=== PATIENT | female | born 1995 | race American Indian/Alaskan Native ===

== ENCOUNTER 2018-04-18 14:46 | Outpatient (CLI) | payer MEDICAID ==
[2018-04-18] MEDS ORDERED: LACTATED RINGERS 500 ML IV ONE (14:54)
[2018-04-18] MEDS ORDERED: BRETHINE SUB-Q ONE (14:55)
[2018-04-18 15:41] LABS: Amphetamine Screen,Urine PRESUMPTIVE NEGATIVE; Benzodiazepines Screen,Urine PRESUMPTIVE NEGATIVE; Cannabinoid Screen,Urine PRESUMPTIVE NEGATIVE; Cocaine Screen,Urine PRESUMPTIVE NEGATIVE; Methadone Screen,Urine PRESUMPTIVE NEGATIVE; Opiate Screen,Urine PRESUMPTIVE NEGATIVE
[2018-04-18 15:59] LABS: Bacteria,Urine 3+ /HPF (Negative); Bilirubin,Urine NEG (Negative); Blood,Urine MOD (Negative); Color,Urine Yellow (Yellow); Mucus,Urine FEW /HPF; Urobilinogen,Urine < 2.0 mg/dL (<2.0)
== END 2018-04-18 17:00 | disposition home or self-care (01) ==
LOC: TRG 14:46
PROVIDERS: ATTEND Obstetrics & Gynecology
DX: O47.03 False labor before 37 completed weeks of gestation, third trimester (principal); O99.333 Smoking (tobacco) complicating pregnancy, third trimester; F17.210 Nicotine dependence, cigarettes, uncomplicated; Z3A.32 32 weeks gestation of pregnancy; Z79.899 Other long term (current) drug therapy
CPT/HCPCS: 59025; 80307; 81001; 96360; 96361; J3105; J7120

== ENCOUNTER 2018-06-10 09:29 | Inpatient (IN) | payer MEDICAID ==
--- NOTE | 2018-06-10 09:53 | Emergency Department Report ---
ED Fever HPI - General Stated Complaint: FEVER Time Seen by Provider: 06/10/18 09:40 Source: patient, EMS Exam Limitations: no limitations - History of Present Illness Initial Comments: is a 23-year-old female that presents emergency room with complaints of fever and weakness. Patient also complains of right breast pain. Patient states she just had a baby 7 days ago and was discharged 2 days ago from [facility]. Patient states she had a vaginal delivery with no complications. Patient states the baby is doing well. Patient denies vaginal bleeding or vaginal discharge. Patient complains of right breast pain and patient is breast -feeding. Patient states her right breast is hard and warm and very tender to touch. Patient states she feels like is mastitis. 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 denies: abdominal pain, chest pain , confusion, cough, diaphoresis, headache, nausea/vomiting, rash, shortness of breath, sore throat, stiff neck, syncope ED Review of Systems ROS: Stated complaint: FEVER Other details as noted in HPI Constitutional: chills, fever, malaise, weakness Eyes: denies: eye pain, eye discharge, vision change ENT: denies: ear pain, throat pain Respiratory: denies: cough, shortness of breath, wheezing Cardiovascular: denies: chest pain, palpitations Endocrine: no symptoms reported Gastrointestinal: denies: abdominal pain, nausea, diarrhea Genitourinary: denies: urgency, dysuria, discharge Musculoskeletal: denies: back pain, joint swelling, arthralgia Skin: denies: rash, lesions Neurological: denies: headache, weakness, paresthesias Psychiatric: denies: anxiety, depression Hematological/Lymphatic: denies: easy bleeding, easy bruising ED Past Medical Hx - Past Medical History Previous Medical History?: No - Surgical History Past Surgical History?: No - Family History Family history: no significant - Social History Smoking Status: Never Smoker Substance Use Type: None - Medications Home Medications: Home Medications Medication Instructions Recorded Confirmed Last Taken Type No Known Home Medications [No 06/10/18 06/10/18 Unknown History Reported Home Medications] ED Physical Exam - General Limitations: No Limitations General appearance: alert, in no apparent distress - Head Head exam: Present: atraumatic, normocephalic - Eye Eye exam: Present: normal appearance - ENT ENT exam: Present: mucous membranes moist - Neck Neck exam: Present: normal inspection - Respiratory Respiratory exam: Present: normal lung sounds bilaterally. Absent: respiratory distress - Cardiovascular Cardiovascular Exam: Present: regular rate, normal rhythm, other (right breast exam done with nurse in the room. Right breast is tender to palpation and redness and warm. ). Absent: systolic murmur, diastolic murmur, rubs, gallop - GI/Abdominal GI/Abdominal exam: Present: soft, normal bowel sounds - Extremities Exam Extremities exam: Present: normal inspection - Back Exam Back exam: Present: normal inspection - Neurological Exam Neurological exam: Present: alert, oriented X3 - Psychiatric Psychiatric exam: Present: normal affect, normal mood - Skin Skin exam: Present: warm, dry, intact, normal color, erythema (rt breast. breast exam with nurse/eleazar in room. ). Absent: rash ED Course Vital Signs 06/10/18 06/10/18 09:52 10:07 Temperature 102.5 F H 102.5 F H Pulse Rate 108 H 108 H Respiratory 22 19 Rate Blood Pressure 143/85 Blood Pressure 143/85 [Left] O2 Sat by Pulse 98 98 Oximetry - Reevaluation(s) Reevaluation #1: Discussed all results with patient. Patient to be admitted to the hospitalist service for further evaluation and treatment. 06/10/18 13:55 - Consultations Consultation #1: dr dee consulted for admission. dr dee to assume care,. 06/10/18 13:55 ED Medical Decision Making - Lab Data Result diagrams: 06/10/18 10:07 06/10/18 10:07 - Medical Decision Making Patient is a 23-year-old female presents emergency room for weakness and fever. Patient found to be septic. Patient found to have an elevated white count and heart rate. Patient is also status post vaginal delivery 7 days ago. Patient found to have mastitis of her right breast and a UTI. Patient was started on antibiotic therapy and given 3 L of normal saline bolus. Patient will be admitted to the hospitalist service for further evaluation treatment - Differential Diagnosis fever. weakness. sepsis. uti. mastitis. Critical Care Time: Yes Critical care attestation.: If time is entered above; I have spent that time in minutes in the direct care of this critically ill patient, excluding procedure time. Critical Care Time: 35 minutes for cc time. ED Disposition Clinical Impression: Tachycardia, Weakness, Mastitis, Lactic acid acidosis Fever Qualifiers: Fever type: unspecified Qualified Code(s): R50.9 - Fever, unspecified Sepsis Qualifiers: Sepsis type: sepsis due to unspecified organism Qualified Code(s): A41.9 - Sepsis, unspecified organism Urinary tract infection Qualifiers: Urinary tract infection type: acute cystitis Hematuria presence: with hematuria Qualified Code(s): N30.01 - Acute cystitis with hematuria Disposition: OP ADMIT IP TO THIS HOSP Is pt being admited?: Yes Does the pt Need Aspirin: No Condition: Critical Time of Disposition: 13:51
[2018-06-10] MEDS ORDERED: NACL 0.9% 1000 ML IV ONE (10:02)
[2018-06-10] MEDS ORDERED: ZOSYN/NS 4.5GM/100ML 4.5 GM/100 ML VIAL IV ONE (10:02)
[2018-06-10 10:26] LABS: Basophils # (Auto) 0.1 K/mm3 (0.0-0.1); Basophils % (Auto) 0.7 % (0.0-1.8); Eosinophils % (Auto) 0.2 % (0.0-4.3); Hemoglobin 14.1 gm/dl (10.1-14.3); Lymphocytes # (Auto) 1.2 K/mm3 (1.2-5.4); Lymphocytes % (Auto) 8.9 % (13.4-35.0); Mean Corpuscular HGB Conc 32 % (30-34); Mean Corpuscular Volume 79 fl (79-97); Monocytes # (Auto) 0.6 K/mm3 (0.0-0.8); Monocytes % (Auto) 4.5 % (0.0-7.3); Platelet Count 373 K/mm3 (140-440); Red Blood Count 5.59 M/mm3 (3.65-5.03); Red Cell Distribution Width 15.4 % (13.2-15.2)
[2018-06-10 10:30] LABS: Mean Corpuscular Hemoglobin 25 pg (28-32)
[2018-06-10 10:36] LABS: Alanine Aminotransferase 47 units/L (7-56); Albumin 3.7 g/dL (3.9-5); BUN/Creatinine Ratio 13; Blood Urea Nitrogen 9 mg/dL (7-17); Calcium 9.1 mg/dL (8.4-10.2); Hemolysis Index 21
[2018-06-10] MEDS ORDERED: DILAUDID IV ONE (12:09)
[2018-06-10 13:11] LABS: Bacteria,Urine 1+ /HPF (Negative); Bilirubin,Urine NEG (Negative); Blood,Urine LG (Negative); Color,Urine Yellow (Yellow); Urobilinogen,Urine < 2.0 mg/dL (<2.0)
[2018-06-10] MEDS ORDERED: TYLENOL ONE (16:47)
[2018-06-10] MEDS: TYLENOL PO PRN ×2 (16:52→23:30)
[2018-06-10] MEDS ORDERED: MORPHINE ONE (17:42)
--- NOTE | 2018-06-10 19:03 | History and Physical Report ---
History of Present Illness Date of examination: 06/10/18 Date of admission: 06/10/18 14:24 Chief complaint: CC Fever and R Breast pain 2 days History of present illness: History of Present Illness: 23-year-old female that presents emergency room with complaints of fever and weakness. Patient also complains of right breast pain. Patient states she just had a baby 7 days ago and was discharged 2 days ago from [facility]. Patient states she had a vaginal delivery with no complications. Patient states the baby is doing well. Patient denies vaginal bleeding or vaginal discharge. Patient complains of right breast pain and patient is breast- feeding. Patient states her right breast is hard and warm and very tender to touch. Patient states she feels like is mastitis. 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 denies: abdominal pain, chest pain, confusion , cough, diaphoresis, headache, nausea/vomiting, rash, shortness of breath, sore throat, stiff neck, syncope Past Medical History Previous Medical History?: No Surgical History Past Surgical History?: No Family History Family history: no significant Social History Smoking Status: Never Smoker Substance Use Type: None Medications Home Medications: Home Medications Medication Instructions Recorded Confirmed Last Taken Type No Known Home Medications [No 06/10/18 06/10/18 Unknown History Reported Home Medications] Review of Systems ROS: Stated complaint: FEVER Other details as noted in HPI Constitutional: chills, fever, malaise, weakness Eyes: denies: eye pain, eye discharge, vision change ENT: denies: ear pain, throat pain Respiratory: denies: cough, shortness of breath, wheezing Cardiovascular: denies: chest pain, palpitations Endocrine: no symptoms reported Gastrointestinal: denies: abdominal pain, nausea, diarrhea Genitourinary: denies: urgency, dysuria, discharge Musculoskeletal: denies: back pain, joint swelling, arthralgia Skin: denies: rash, lesions Neurological: denies: headache, weakness, paresthesias Psychiatric: denies: anxiety, depression Hematological/Lymphatic: denies: easy bleeding, easy bruising Medications and Allergies Allergies Allergy/AdvReac Type Severity Reaction Status Date / Time No Known Allergies Allergy Unverified 08/10/13 10:27 Home Medications Medication Instructions Recorded Confirmed Last Taken Type No Known Home Medications [No 06/10/18 06/10/18 Unknown History Reported Home Medications] Active Meds: Active Medications Acetaminophen (Tylenol) 650 mg PO Q6H PRN PRN Reason: Fever >101 Last Admin: 06/10/18 16:52 Dose: 650 mg Exam - Constitutional Vitals: Temp Pulse Resp BP Pulse Ox 102.5 F H 108 H 19 143/85 98 06/10/18 10:07 06/10/18 10:07 06/10/18 10:07 06/10/18 10:07 06/10/18 10:07 General appearance: Present: no acute distress, well-nourished - EENT Eyes: Present: PERRL ENT: hearing intact, clear oral mucosa - Neck Neck: Present: supple, normal ROM - Respiratory Respiratory effort: normal Respiratory: bilateral: CTA - Cardiovascular Heart rate: 78 Rhythm: other (r Breast Redness and swelling present around mnipple 5 cmx 5cm) Heart Sounds: Present: S1 & S2. Absent: rub, click - Extremities Extremities: no ischemia, pulses intact, pulses symmetrical, No edema Peripheral Pulses: within normal limits - Abdominal General gastrointestinal: Present: soft, non-tender, non-distended, normal bowel sounds Female genitourinary: Present: normal - Rectal Rectal Exam: deferred - Integumentary Integumentary: Present: clear, warm, dry - Musculoskeletal Musculoskeletal: gait normal, strength equal bilaterally - Psychiatric Psychiatric: appropriate mood/affect, intact judgment & insight - Neurologic Neurologic: CNII-XII intact, moves all extremities - Allied Health Allied health notes reviewed: nursing, case management Results - Labs CBC & Chem 7: 06/10/18 10:07 06/10/18 10:07 Labs: Laboratory Last Values WBC 13.8 K/mm3 (4.5-11.0) H 06/10/18 10:07 RBC 5.59 M/mm3 (3.65-5.03) H 06/10/18 10:07 Hgb 14.1 gm/dl (10.1-14.3) 06/10/18 10:07 Hct 44.0 % (30.3-42.9) H 06/10/18 10:07 MCV 79 fl (79-97) 06/10/18 10:07 MCH 25 pg (28-32) L 06/10/18 10:07 MCHC 32 % (30-34) 06/10/18 10:07 RDW 15.4 % (13.2-15.2) H 06/10/18 10:07 Plt Count 373 K/mm3 (140-440) 06/10/18 10:07 Lymph % (Auto) 8.9 % (13.4-35.0) L 06/10/18 10:07 [place] % (Auto) 4.5 % (0.0-7.3) 06/10/18 10:07 Eos % (Auto) 0.2 % (0.0-4.3) 06/10/18 10:07 Baso % (Auto) 0.7 % (0.0-1.8) 06/10/18 10:07 Lymph # 1.2 K/mm3 (1.2-5.4) 06/10/18 10:07 [place] # 0.6 K/mm3 (0.0-0.8) 06/10/18 10:07 Eos # 0.0 K/mm3 (0.0-0.4) 06/10/18 10:07 Baso # 0.1 K/mm3 (0.0-0.1) 06/10/18 10:07 Seg Neutrophils % 85.7 % (40.0-70.0) H 06/10/18 10:07 Seg Neutrophils # 11.9 K/mm3 (1.8-7.7) H 06/10/18 10:07 Sodium 140 mmol/L (137-145) 06/10/18 10:07 Potassium 3.8 mmol/L (3.6-5.0) 06/10/18 10:07 Chloride 101.4 mmol/L (98-107) 06/10/18 10:07 Carbon Dioxide 22 mmol/L (22-30) 06/10/18 10:07 Anion Gap 20 mmol/L 06/10/18 10:07 BUN 9 mg/dL (7-17) 06/10/18 10:07 Creatinine 0.7 mg/dL (0.7-1.2) 06/10/18 10:07 Estimated GFR > 60 ml/min 06/10/18 10:07 BUN/Creatinine Ratio 13 % 06/10/18 10:07 Glucose 91 mg/dL (65-100) 06/10/18 10:07 Lactic Acid 1.50 mmol/L (0.7-2.0) 06/10/18 14:01 Calcium 9.1 mg/dL (8.4-10.2) 06/10/18 10:07 Total Bilirubin 0.30 mg/dL (0.1-1.2) 06/10/18 10:07 AST 35 units/L (5-40) 06/10/18 10:07 ALT 47 units/L (7-56) 06/10/18 10:07 Alkaline Phosphatase 198 units/L (35-129) H 06/10/18 10:07 Total Protein 8.2 g/dL (6.3-8.2) 06/10/18 10:07 Albumin 3.7 g/dL (3.9-5) L 06/10/18 10:07 Albumin/Globulin Ratio 0.8 % 06/10/18 10:07 Urine Color Yellow (Yellow) 06/10/18 12:48 Urine Turbidity Clear (Clear) 06/10/18 12:48 Urine pH 7.0 (5.0-7.0) 06/10/18 12:48 Ur Specific [place] 1.017 (1.003-1.030) 06/10/18 12:48 Urine Protein 30 mg/dl mg/dL (Negative) 06/10/18 12:48 Urine Glucose (UA) Neg mg/dL (Negative) 06/10/18 12:48 Urine Ketones Neg mg/dL (Negative) 06/10/18 12:48 Urine Blood Lg (Negative) 06/10/18 12:48 Urine Nitrite Neg (Negative) 06/10/18 12:48 Urine Bilirubin Neg (Negative) 06/10/18 12:48 Urine Urobilinogen < 2.0 mg/dL (<2.0) 06/10/18 12:48 Ur Leukocyte Esterase Mod (Negative) 06/10/18 12:48 Urine WBC (Auto) 15.0 /HPF (0.0-6.0) H 06/10/18 12:48 Urine RBC (Auto) 5.0 /HPF (0.0-6.0) 06/10/18 12:48 U Epithel Cells (Auto) 4.0 /HPF (0-13.0) 06/10/18 12:48 Urine Bacteria (Auto) 1+ /HPF (Negative) 06/10/18 12:48 Assessment and Plan Advance Directives: Yes (Full code) VTE prophylaxis?: Chemical Plan of care discussed with patient/family: Yes - Patient Problems (1) Mastitis Current Visit: Yes Status: Acute Plan to address problem: Sec to trauma from Breast feeding IV Unasyn and IV Vancomycin (2) UTI (urinary tract infection) Current Visit: Yes Status: Acute Qualifiers: Urinary tract infection type: acute cystitis Plan to address problem: IV Unasyn (3) DVT prophylaxis Current Visit: Yes Status: Acute Plan to address problem: On Lovenox
[2018-06-10] MEDS ORDERED: SODIUM CHLORIDE FLUSH SYRINGE 10 ML IV PRN ×2 (19:04→19:09)
[2018-06-10] MEDS ORDERED: MORPHINE IV PRN (19:04)
[2018-06-10] MEDS ORDERED: TYLENOL PO PRN (19:04)
[2018-06-10] MEDS ORDERED: ZOFRAN IV PRN ×2 (19:04→19:09)
[2018-06-10] MEDS ORDERED: VANCOMYCIN 1,250 MG in NACL 0.9% 250ML 250 ML IV ONE (20:00)
[2018-06-10] MEDS ORDERED: VANCOMYCIN PHARMACY TO DOSE IV SCH (20:00)
[2018-06-10] MEDS: UNASYN/NS 3 GM/100 ML 3 GM/100 ML BAG IV SCH (21:25)
[2018-06-10] MEDS: SODIUM CHLORIDE FLUSH SYRINGE 10 ML IV SCH ×2 (23:31)
[2018-06-10] MEDS: PEPCID PO SCH (23:31)
[2018-06-10] MEDS: PERCOCET 5/325 PO PRN (23:32)
[2018-06-11] MEDS: UNASYN/NS 3 GM/100 ML 3 GM/100 ML BAG IV SCH ×5 (02:14→23:40)
[2018-06-11] MEDS: BENADRYL IV PRN (02:27)
[2018-06-11 07:02] LABS: Basophils # (Auto) 0.1 K/mm3 (0.0-0.1); Basophils % (Auto) 0.5 % (0.0-1.8); Eosinophils % (Auto) 0.1 % (0.0-4.3); Hematocrit 36.6 % (30.3-42.9); Hemoglobin 11.9 gm/dl (10.1-14.3); Lymphocytes # (Auto) 1.8 K/mm3 (1.2-5.4); Lymphocytes % (Auto) 12.5 % (13.4-35.0); Mean Corpuscular HGB Conc 32 % (30-34); Mean Corpuscular Volume 78 fl (79-97); Monocytes # (Auto) 0.9 K/mm3 (0.0-0.8); Monocytes % (Auto) 6.5 % (0.0-7.3); Platelet Count 318 K/mm3 (140-440); Red Blood Count 4.71 M/mm3 (3.65-5.03); Red Cell Distribution Width 15.5 % (13.2-15.2)
[2018-06-11 07:05] LABS: Mean Corpuscular Hemoglobin 25 pg (28-32)
[2018-06-11 07:21] LABS: Alanine Aminotransferase 26 units/L (7-56); Albumin 2.8 g/dL (3.9-5); BUN/Creatinine Ratio 11; Blood Urea Nitrogen 8 mg/dL (7-17); Calcium 8.3 mg/dL (8.4-10.2); Hemolysis Index 3
[2018-06-11] MEDS ORDERED: VANCOMYCIN/NS 1 GM/250 ML 1 GM/250 ML BAG IV SCH (08:00)
[2018-06-11] MEDS ORDERED: K-DUR PO ONE (08:39)
[2018-06-11] MEDS: PERCOCET 5/325 PO PRN (08:41)
[2018-06-11] MEDS: PEPCID PO SCH ×2 (09:38→21:33)
[2018-06-11] MEDS: SODIUM CHLORIDE FLUSH SYRINGE 10 ML IV SCH ×3 (11:43→21:33)
--- NOTE | 2018-06-11 12:19 | Progress Note ---
Assessment and Plan - Patient Problems (1) Mastitis Current Visit: Yes Status: Acute Plan to address problem: Patient improving significantly with Unasyn IV antibiotics. May be able to change to by mouth tomorrow and anticipated discharge. We'll add warm compress to current treatment. (2) UTI (urinary tract infection) Current Visit: Yes Status: Acute Qualifiers: Urinary tract infection type: acute cystitis Plan to address problem: Currently being treated with same antibiotic. No new changes. Follow-up culture data. History Interval history: The patient is much better at this time. Last breast pain less fever. Able to touch breasts without significant pain now. Hospitalist Physical - Constitutional Vitals: Temp Pulse Resp BP Pulse Ox 99.4 F 86 20 117/85 99 06/11/18 11:25 06/11/18 11:25 06/11/18 11:25 06/11/18 11:25 06/11/18 11:25 General appearance: Present: no acute distress, well-nourished - EENT Eyes: Present: PERRL, EOM intact ENT: hearing intact, clear oral mucosa, dentition normal - Neck Neck: Present: supple, normal ROM - Respiratory Respiratory: bilateral: CTA - Cardiovascular Rhythm: regular Heart Sounds: Present: S1 & S2 - Extremities Extremities: no ischemia, pulses intact, pulses symmetrical, No edema, normal temperature, normal color, Full ROM Extremity abnormal: other (patient breasts is less indurated erythema appears to be resolving. Producing milk.) Peripheral Pulses: within normal limits - Abdominal General gastrointestinal: soft, non-tender, normal bowel sounds - Psychiatric Psychiatric: appropriate mood/affect, intact judgment & insight - Neurologic Neurologic: CNII-XII intact, focal deficits, moves all extremities Results - Labs CBC & Chem 7: 06/11/18 06:34 06/11/18 06:34 Labs: Laboratory Last Values WBC 14.2 K/mm3 (4.5-11.0) H 06/11/18 06:34 RBC 4.71 M/mm3 (3.65-5.03) 06/11/18 06:34 Hgb 11.9 gm/dl (10.1-14.3) 06/11/18 06:34 Hct 36.6 % (30.3-42.9) D 06/11/18 06:34 MCV 78 fl (79-97) L 06/11/18 06:34 MCH 25 pg (28-32) L 06/11/18 06:34 MCHC 32 % (30-34) 06/11/18 06:34 RDW 15.5 % (13.2-15.2) H 06/11/18 06:34 Plt Count 318 K/mm3 (140-440) 06/11/18 06:34 Lymph % (Auto) 12.5 % (13.4-35.0) L 06/11/18 06:34 [place] % (Auto) 6.5 % (0.0-7.3) 06/11/18 06:34 Eos % (Auto) 0.1 % (0.0-4.3) 06/11/18 06:34 Baso % (Auto) 0.5 % (0.0-1.8) 06/11/18 06:34 Lymph # 1.8 K/mm3 (1.2-5.4) 06/11/18 06:34 [place] # 0.9 K/mm3 (0.0-0.8) H 06/11/18 06:34 Eos # 0.0 K/mm3 (0.0-0.4) 06/11/18 06:34 Baso # 0.1 K/mm3 (0.0-0.1) 06/11/18 06:34 Seg Neutrophils % 80.4 % (40.0-70.0) H 06/11/18 06:34 Seg Neutrophils # 11.4 K/mm3 (1.8-7.7) H 06/11/18 06:34 Sodium 137 mmol/L (137-145) 06/11/18 06:34 Potassium 3.2 mmol/L (3.6-5.0) L 06/11/18 06:34 Chloride 104.7 mmol/L (98-107) 06/11/18 06:34 Carbon Dioxide 18 mmol/L (22-30) L 06/11/18 06:34 Anion Gap 18 mmol/L 06/11/18 06:34 BUN 8 mg/dL (7-17) 06/11/18 06:34 Creatinine 0.7 mg/dL (0.7-1.2) 06/11/18 06:34 Estimated GFR > 60 ml/min 06/11/18 06:34 BUN/Creatinine Ratio 11 % 06/11/18 06:34 Glucose 101 mg/dL (65-100) H 06/11/18 06:34 Hemoglobin A1c 6.1 % (4-6) H 06/10/18 10:07 Lactic Acid 1.50 mmol/L (0.7-2.0) 06/10/18 14:01 Calcium 8.3 mg/dL (8.4-10.2) L 06/11/18 06:34 Total Bilirubin 0.30 mg/dL (0.1-1.2) 06/11/18 06:34 AST 18 units/L (5-40) 06/11/18 06:34 ALT 26 units/L (7-56) 06/11/18 06:34 Alkaline Phosphatase 139 units/L (35-129) H 06/11/18 06:34 Total Protein 6.5 g/dL (6.3-8.2) D 06/11/18 06:34 Albumin 2.8 g/dL (3.9-5) L 06/11/18 06:34 Albumin/Globulin Ratio 0.8 % 06/11/18 06:34 Urine Color Yellow (Yellow) 06/10/18 12:48 Urine Turbidity Clear (Clear) 06/10/18 12:48 Urine pH 7.0 (5.0-7.0) 06/10/18 12:48 Ur Specific [place] 1.017 (1.003-1.030) 06/10/18 12:48 Urine Protein 30 mg/dl mg/dL (Negative) 06/10/18 12:48 Urine Glucose (UA) Neg mg/dL (Negative) 06/10/18 12:48 Urine Ketones Neg mg/dL (Negative) 06/10/18 12:48 Urine Blood Lg (Negative) 06/10/18 12:48 Urine Nitrite Neg (Negative) 06/10/18 12:48 Urine Bilirubin Neg (Negative) 06/10/18 12:48 Urine Urobilinogen < 2.0 mg/dL (<2.0) 06/10/18 12:48 Ur Leukocyte Esterase Mod (Negative) 06/10/18 12:48 Urine WBC (Auto) 15.0 /HPF (0.0-6.0) H 06/10/18 12:48 Urine RBC (Auto) 5.0 /HPF (0.0-6.0) 06/10/18 12:48 U Epithel Cells (Auto) 4.0 /HPF (0-13.0) 06/10/18 12:48 Urine Bacteria (Auto) 1+ /HPF (Negative) 06/10/18 12:48
[2018-06-11] MEDS: VANCOMYCIN/NS 1 GM/250 ML 1 GM/250 ML BAG IV SCH ×2 (15:27→23:00)
--- NOTE | 2018-06-11 15:59 | Consultation ---
History of Present Illness - Reason for Consult Consult date: 06/11/18 mastitis Requesting physician: KENNETH PRINCE - History of Present Illness 23 y/o female with recent vaginal delivery of a on 06/03/18, currently breast feeding, admitted on 06/10/18 due to 48 h history of fever at 103, malaise and right breast edema, tenderness and erythema. Patient states the baby is doing well. Patient denies vaginal bleeding or vaginal discharge. Denies any recent cough, SOB, urinary symptoms, sick contacts. She reports she was found to have a bad vaginal yeast infection before delivery. In the ED, temp 102.5, HR 110, R 25, BP 159/81. WBC 13.8. Hg 14.1. Plat 373. Creat 0.7. Ua 15 wbc and mod LE. Microbiology: Blood cultures: 06/10 ngtd Urine cultures: Current Antimicrobials: Unasyn 06/11 Previous Antimicrobials: Medications and Allergies Allergies Allergy/AdvReac Type Severity Reaction Status Date / Time No Known Allergies Allergy Unverified 08/10/13 10:27 Home Medications Medication Instructions Recorded Confirmed Last Taken Type No Known Home Medications [No 06/10/18 06/10/18 Unknown History Reported Home Medications] Active Meds: Active Medications Acetaminophen (Tylenol) 650 mg PO Q4H PRN PRN Reason: Pain MILD(1-3)/Fever >100.5/MARTINEZ Diphenhydramine HCl (Benadryl) 25 mg IV Q6H PRN PRN Reason: Itching Last Admin: 06/11/18 02:27 Dose: 25 mg Famotidine (Pepcid) 20 mg PO BID [facility] Last Admin: 06/11/18 09:38 Dose: 20 mg Ampicillin Sodium/Sulbactam Sodium (Unasyn/Ns 3 Gm/100 Ml) 3 gm in 100 mls @ 100 mls/hr IV Q6HR [facility]; Protocol Last Admin: 06/11/18 11:42 Dose: 100 mls/hr Vancomycin HCl (Vancomycin/Ns 1 Gm/250 Ml) 1 gm in 250 mls @ 166.667 mls/hr IV Q8H [facility] Last Admin: 06/11/18 15:27 Dose: 166.667 mls/hr Morphine Sulfate (Morphine) 2 mg IV Q4H PRN PRN Reason: Pain, Moderate (4-6) Ondansetron HCl (Zofran) 4 mg IV Q8H PRN PRN Reason: Nausea And Vomiting Oxycodone/Acetaminophen (Percocet 5/325) 1 tab PO Q6H PRN PRN Reason: Pain, Moderate (4-6) Last Admin: 06/11/18 08:41 Dose: 1 tab Sodium Chloride (Sodium Chloride Flush Syringe 10 Ml) 10 ml IV BID [facility]AYLA Stop: 06/11/18 21:59 Last Admin: 06/11/18 11:43 Dose: 10 ml Sodium Chloride (Sodium Chloride Flush Syringe 10 Ml) 10 ml IV PRN PRN PRN Reason: LINE FLUSH Sodium Chloride (Sodium Chloride Flush Syringe 10 Ml) 10 ml IV BID TAYLA Last Admin: 06/11/18 11:43 Dose: 10 ml Sodium Chloride (Sodium Chloride Flush Syringe 10 Ml) 10 ml IV PRN PRN PRN Reason: LINE FLUSH Vancomycin HCl (Vancomycin Pharmacy To Dose) 1 each IV PKCONSULT TAYLA; Protocol Review of Systems All systems: negative (per HPI rest neg) Physical Examination - Physical Exam Narrative exam: PGeneral appearance: Alert in NAD, conversant Eyes: anicteric sclerae, moist conjunctivae; no lid-lag; PERRLA HENT: Atraumatic; oropharynx clear with moist mucous membranes and no mucosal ulcerations/no oral thrush; normal hard and soft palate. Normal external ears. Neck: Trachea midline; supple, no thyromegaly or lymphadenopathy Lungs: CTA, with normal respiratory effort and no intercostal retractions CV: RRR, no murmurs Abdomen: Soft, non-tender; no masses or hepatosplenomegaly Extremities: No peripheral edema or extremity lymphadenopathy Skin: +right breast erythema, edema Psych: Appropriate affect, alert and oriented to person, place and time. Neuro: alert and oriented x 3. Moving all extermities Lines: No CVL / PICC - Constitutional Vitals: Vital Signs Temp Pulse Resp BP Pulse Ox 99.4 F 86 20 117/85 99 06/11/18 11:25 06/11/18 11:25 06/11/18 11:25 06/11/18 11:25 06/11/18 11:25 Temperature -Last 24 Hours Temperature 99.4 F Temperature 99.6 F Temperature 101.0 F Temperature 99.6 F Temperature 98.3 F Temperature 102.0 F Results - Labs CBC & Chem 7: 06/11/18 06:34 06/11/18 06:34 Labs: Abnormal lab results 06/10/18 06/11/18 06/11/18 Range/Units 10:07 06:34 06:34 WBC 14.2 H (4.5-11.0) K/mm3 MCV 78 L (79-97) fl MCH 25 L (28-32) pg RDW 15.5 H (13.2-15.2) % Lymph % (Auto) 12.5 L (13.4-35.0) % [place] # 0.9 H (0.0-0.8) K/mm3 Seg Neutrophils % 80.4 H (40.0-70.0) % Seg Neutrophils # 11.4 H (1.8-7.7) K/mm3 Potassium 3.2 L (3.6-5.0) mmol/L Carbon Dioxide 18 L (22-30) mmol/L Glucose 101 H (65-100) mg/dL Hemoglobin A1c 6.1 H (4-6) % Calcium 8.3 L (8.4-10.2) mg/dL Alkaline Phosphatase 139 H (35-129) units/L Albumin 2.8 L (3.9-5) g/dL Assessment and Plan Assessment: 1) Sepsis: Present on admission, manifested by fever, tachycardia. Etiology most likely mastitis +/- UTI 2) mastitis 3) UTI Plan: -follow-up blood cultures, urine culture -continue unasyn for now -monitor fever, if not better in 24-48h will add vancomycin -keep breast pumping -warm compresses to right breast I am rounding on Wednesday Thank you for your consultation, will follow up with you. Fabiola Warren MD Infectious Diseases Specialist [facility] M [phone] O [phone]
[2018-06-11] MEDS: TYLENOL PO PRN ×2 (17:00→23:41)
[2018-06-12] MEDS: UNASYN/NS 3 GM/100 ML 3 GM/100 ML BAG IV SCH ×2 (06:13→14:33)
[2018-06-12] MEDS: VANCOMYCIN/NS 1 GM/250 ML 1 GM/250 ML BAG IV SCH ×2 (08:00→16:31)
[2018-06-12] MEDS: BENADRYL IV PRN (08:16)
[2018-06-12] MEDS: PEPCID PO SCH ×2 (11:37→22:54)
--- NOTE | 2018-06-12 13:31 | Progress Note ---
Assessment and Plan - Patient Problems (1) Mastitis Current Visit: Yes Status: Acute Plan to address problem: At present patient is mastitis has improved dramatically. Patient's breast is no longer erythematouscellulitic area does have a minimal hardening area and breasts but this is most likely secondary to the . Improves when she pumps the breasts and don't the product of . At this time since we're unaware with the patient is allergic to will treat with Atarax and Benadryl initially I think we can discontinue the antibiotic at this particular time. Could've been allergic to penicillin. We'll change to Levaquin at this time. And also discontinue the morphine. Blood culture data unremarkable. Patient should be more aggressive warm compresses only received one time yesterday. (2) UTI (urinary tract infection) Current Visit: Yes Status: Acute Qualifiers: Urinary tract infection type: acute cystitis Plan to address problem: Currently being treated with same antibiotic. No new changes. Follow-up culture data. History Interval history: Patient Hospital course complicated by an allergic reaction in which she had facial rash on neck or pharyngeal swelling rash on bilateral arms. Etiology antibiotic versus morphine. Hospitalist Physical - Constitutional Vitals: Temp Pulse Resp BP Pulse Ox 98.6 F 83 18 146/103 100 06/12/18 12:32 06/12/18 12:32 06/12/18 12:32 06/12/18 12:32 06/12/18 12:32 General appearance: Present: no acute distress, mild distress, well-nourished - EENT Eyes: Present: PERRL, EOM intact, irregular pupil ENT: other (rash under neck and on arms hives few wheels) - Neck Neck: Present: supple, normal ROM - Respiratory Respiratory effort: normal - Cardiovascular Rhythm: regular Heart Sounds: Present: S1 & S2 - Extremities Extremities: no ischemia, pulses intact, pulses symmetrical, No edema, normal temperature, normal color, Full ROM - Abdominal General gastrointestinal: soft, non-tender, non-distended, normal bowel sounds - Integumentary Integumentary: Present: clear, warm, dry - Psychiatric Psychiatric: appropriate mood/affect, intact judgment & insight, cooperative - Neurologic Neurologic: CNII-XII intact, no focal deficits, moves all extremities Results - Labs CBC & Chem 7: 06/11/18 06:34 06/11/18 06:34 Labs: Laboratory Last Values WBC 14.2 K/mm3 (4.5-11.0) H 06/11/18 06:34 RBC 4.71 M/mm3 (3.65-5.03) 06/11/18 06:34 Hgb 11.9 gm/dl (10.1-14.3) 06/11/18 06:34 Hct 36.6 % (30.3-42.9) D 06/11/18 06:34 MCV 78 fl (79-97) L 06/11/18 06:34 MCH 25 pg (28-32) L 06/11/18 06:34 MCHC 32 % (30-34) 06/11/18 06:34 RDW 15.5 % (13.2-15.2) H 06/11/18 06:34 Plt Count 318 K/mm3 (140-440) 06/11/18 06:34 Lymph % (Auto) 12.5 % (13.4-35.0) L 06/11/18 06:34 Cherry % (Auto) 6.5 % (0.0-7.3) 06/11/18 06:34 Eos % (Auto) 0.1 % (0.0-4.3) 06/11/18 06:34 Baso % (Auto) 0.5 % (0.0-1.8) 06/11/18 06:34 Lymph # 1.8 K/mm3 (1.2-5.4) 06/11/18 06:34 Cherry # 0.9 K/mm3 (0.0-0.8) H 06/11/18 06:34 Eos # 0.0 K/mm3 (0.0-0.4) 06/11/18 06:34 Baso # 0.1 K/mm3 (0.0-0.1) 06/11/18 06:34 Seg Neutrophils % 80.4 % (40.0-70.0) H 06/11/18 06:34 Seg Neutrophils # 11.4 K/mm3 (1.8-7.7) H 06/11/18 06:34 Sodium 137 mmol/L (137-145) 06/11/18 06:34 Potassium 3.2 mmol/L (3.6-5.0) L 06/11/18 06:34 Chloride 104.7 mmol/L (98-107) 06/11/18 06:34 Carbon Dioxide 18 mmol/L (22-30) L 06/11/18 06:34 Anion Gap 18 mmol/L 06/11/18 06:34 BUN 8 mg/dL (7-17) 06/11/18 06:34 Creatinine 0.7 mg/dL (0.7-1.2) 06/11/18 06:34 Estimated GFR > 60 ml/min 06/11/18 06:34 BUN/Creatinine Ratio 11 % 06/11/18 06:34 Glucose 101 mg/dL (65-100) H 06/11/18 06:34 Hemoglobin A1c 6.1 % (4-6) H 06/10/18 10:07 Lactic Acid 1.50 mmol/L (0.7-2.0) 06/10/18 14:01 Calcium 8.3 mg/dL (8.4-10.2) L 06/11/18 06:34 Total Bilirubin 0.30 mg/dL (0.1-1.2) 06/11/18 06:34 AST 18 units/L (5-40) 06/11/18 06:34 ALT 26 units/L (7-56) 06/11/18 06:34 Alkaline Phosphatase 139 units/L (35-129) H 06/11/18 06:34 Total Protein 6.5 g/dL (6.3-8.2) D 06/11/18 06:34 Albumin 2.8 g/dL (3.9-5) L 06/11/18 06:34 Albumin/Globulin Ratio 0.8 % 06/11/18 06:34 Urine Color Yellow (Yellow) 06/10/18 12:48 Urine Turbidity Clear (Clear) 06/10/18 12:48 Urine pH 7.0 (5.0-7.0) 06/10/18 12:48 Ur Specific [place] 1.017 (1.003-1.030) 06/10/18 12:48 Urine Protein 30 mg/dl mg/dL (Negative) 06/10/18 12:48 Urine Glucose (UA) Neg mg/dL (Negative) 06/10/18 12:48 Urine Ketones Neg mg/dL (Negative) 06/10/18 12:48 Urine Blood Lg (Negative) 06/10/18 12:48 Urine Nitrite Neg (Negative) 06/10/18 12:48 Urine Bilirubin Neg (Negative) 06/10/18 12:48 Urine Urobilinogen < 2.0 mg/dL (<2.0) 06/10/18 12:48 Ur Leukocyte Esterase Mod (Negative) 06/10/18 12:48 Urine WBC (Auto) 15.0 /HPF (0.0-6.0) H 06/10/18 12:48 Urine RBC (Auto) 5.0 /HPF (0.0-6.0) 06/10/18 12:48 U Epithel Cells (Auto) 4.0 /HPF (0-13.0) 06/10/18 12:48 Urine Bacteria (Auto) 1+ /HPF (Negative) 06/10/18 12:48
[2018-06-12] MEDS: LEVAQUIN PO SCH (14:57)
[2018-06-12] MEDS: ATARAX PO PRN ×2 (14:57→22:54)
[2018-06-12] MEDS: SODIUM CHLORIDE FLUSH SYRINGE 10 ML IV SCH ×2 (14:59→22:54)
[2018-06-13] MEDS: VANCOMYCIN/NS 1 GM/250 ML 1 GM/250 ML BAG IV SCH ×2 (00:30→08:57)
[2018-06-13 08:58] LABS: Hematocrit 37.8 % (30.3-42.9); Hemoglobin 12.2 gm/dl (10.1-14.3); Mean Corpuscular HGB Conc 32 % (30-34); Mean Corpuscular Volume 78 fl (79-97); Platelet Count 359 K/mm3 (140-440); Red Blood Count 4.85 M/mm3 (3.65-5.03); Red Cell Distribution Width 15.9 % (13.2-15.2)
[2018-06-13 09:00] LABS: Mean Corpuscular Hemoglobin 25 pg (28-32)
[2018-06-13 09:08] LABS: BUN/Creatinine Ratio 17; Blood Urea Nitrogen 10 mg/dL (7-17); Calcium 8.7 mg/dL (8.4-10.2); Hemolysis Index 3
--- NOTE | 2018-06-13 10:07 | Progress Note ---
Subjective Date of service: 06/13/18 Objective - Constitutional Vitals: Vital Signs - 12hr 06/12/18 06/13/18 23:25 05:29 Temperature 97.9 F 98.0 F Pulse Rate 54 L 65 Respiratory 18 18 Rate Blood Pressure 133/72 128/73 O2 Sat by Pulse 100 97 Oximetry - Labs CBC & Chem 7: 06/13/18 07:43 06/13/18 07:43 Labs: Abnormal lab results 06/13/18 06/13/18 Range/Units 07:43 07:43 MCV 78 L (79-97) fl MCH 25 L (28-32) pg RDW 15.9 H (13.2-15.2) % Carbon Dioxide 21 L (22-30) mmol/L Creatinine 0.6 L (0.7-1.2) mg/dL
[2018-06-13] MEDS: PEPCID PO SCH (10:09)
[2018-06-13] MEDS: SODIUM CHLORIDE FLUSH SYRINGE 10 ML IV SCH (10:09)
--- NOTE | 2018-06-13 12:06 | Progress Note ---
Assessment and Plan Assessment: 1) Sepsis: resolved. Etiology most likely mastitis +/- UTI 2) mastitis: better 3) UTI: urine cx not sent 4) Allergic rash to unasyn Plan: -stop unasyn -start clindamycin -she wants to stop -upon discharge continue clindamycin 300 mg po q8h total 7 days -loratadina for rash, already better I am signing off Thank you for your consultation, will follow up with you. Fabiola Warren MD Infectious Diseases Specialist [facility] M [phone] O [phone] Subjective Date of service: 06/13/18 Principal diagnosis: mastitis Interval history: Developed a diffuse pruritic rash on head,chest and facil swelling on IV unasyn , no fever for 48h Microbiology: Blood cultures: 06/10 neg Urine cultures: Current Antimicrobials: Unasyn 06/11 Previous Antimicrobials: Objective - Exam Narrative Exam: PGeneral appearance: Alert in NAD, conversant Eyes: anicteric sclerae, moist conjunctivae; no lid-lag; PERRLA HENT: Atraumatic; oropharynx clear with moist mucous membranes and no mucosal ulcerations/no oral thrush; normal hard and soft palate. Normal external ears. Neck: Trachea midline; supple, no thyromegaly or lymphadenopathy Lungs: CTA, with normal respiratory effort and no intercostal retractions CV: RRR, no murmurs Abdomen: Soft, non-tender; no masses or hepatosplenomegaly Extremities: No peripheral edema or extremity lymphadenopathy Skin: +right breast erythema, edema - better +facil edema and diffuse maculopapular rash on face, neck and chest Psych: Appropriate affect, alert and oriented to person, place and time. Neuro: alert and oriented x 3. Moving all extermities Lines: No CVL / PICC - Constitutional Vitals: Vital Signs Temp Pulse Resp BP Pulse Ox 98.0 F 65 18 128/73 97 06/13/18 05:29 06/13/18 05:29 06/13/18 05:29 06/13/18 05:29 06/13/18 05:29 Temperature -Last 24 Hours Temperature 98.0 F Temperature 97.9 F Temperature 97.9 F Temperature 98.6 F - Labs CBC & Chem 7: 06/13/18 07:43 06/13/18 07:43 Labs: Abnormal lab results 06/13/18 06/13/18 Range/Units 07:43 07:43 MCV 78 L (79-97) fl MCH 25 L (28-32) pg RDW 15.9 H (13.2-15.2) % Carbon Dioxide 21 L (22-30) mmol/L Creatinine 0.6 L (0.7-1.2) mg/dL
[2018-06-13 12:36] LABS: Anisocytosis 1+; Basophils % (Manual) 0 % (0.0-1.8); Hypochromasia 1+; Platelet Estimate Cons; Total Cells Counted 100
[2018-06-13 12:53] VITALS: BP 135/77
--- NOTE | 2018-06-13 13:10 | Discharge Summary ---
Providers - Providers Date of Admission: 06/10/18 14:24 Date of discharge: 06/13/18 Attending physician: AMBER LIANG 06/10/18 19:04 Consult to Physician [CONS] Routine Comment: Consulting Provider: GONZALO SOTO Physician Instructions: Reason For Exam: Mastitis Primary care physician: PROFESSOR OF PHYSICAL EDUCATION Hospitalization Reason for admission: sepsis from right breast abcess Condition: Critical Pertinent studies: none. blood Cx negative Procedures: none Hospital course: 23-year-old female that presents emergency room with complaints of fever and weakness. Patient also complains of right breast pain. Patient states she just had a baby 7 days ago and was discharged 2 days ago from [facility], [place]. Patient states she had a vaginal delivery with no complications. Patient states the baby is doing well. Patient denies vaginal bleeding or vaginal discharge. Patient complains of right breast pain and patient is breast- feeding. Patient states her right breast is hard and warm and very tender to touch. Patient states she feels like is mastitis. Timing/Duration: this morning Fever Severity/Quality: greater than 102 F Fever Therapy [employer]: none Associated Symptoms: muscle aches, weakness. denies: abdominal pain, chest pain, confusion , cough, diaphoresis, headache, nausea/vomiting, rash, shortness of breath, sore throat, stiff neck, syncope Disposition: DC-30 STILL A PATIENT Core Measure Documentation - Palliative Care Palliative Care/ Comfort Measures: Not Applicable - Core Measures Any of the following diagnoses?: none Exam - Constitutional Vitals: Temp Pulse Resp BP Pulse Ox 97.8 F 69 16 135/77 98 06/13/18 12:21 06/13/18 12:21 06/13/18 12:21 06/13/18 12:21 06/13/18 12:21 General appearance: Present: no acute distress, well-nourished, other (none tender right breast) - EENT Eyes: Present: PERRL ENT: hearing intact, clear oral mucosa - Neck Neck: Present: supple, normal ROM - Respiratory Respiratory effort: normal Respiratory: bilateral: CTA - Cardiovascular Heart Sounds: Present: S1 & S2. Absent: rub, click - Extremities Extremities: pulses symmetrical, No edema Peripheral Pulses: within normal limits - Abdominal General gastrointestinal: Present: soft, non-tender, non-distended, normal bowel sounds Female genitourinary: Present: deferred - Integumentary Integumentary: Present: clear, warm, dry - Musculoskeletal Musculoskeletal: gait normal, strength equal bilaterally - Psychiatric Psychiatric: appropriate mood/affect, intact judgment & insight - Neurologic Neurologic: CNII-XII intact, moves all extremities Plan Activity: advance as tolerated Weight Bearing Status: Weight Bear as Tolerated Diet: regular Follow up with: PRIMARY CARE,MD [Primary Care Provider] - 7 Days Prescriptions: Clindamycin [Clindamycin CAP] 300 mg PO Q8H #21 cap diphenhydrAMINE [Benadryl] 25 mg IV Q8HR #30 vial oxyCODONE /ACETAMINOPHEN [Percocet 5/325 mg] 1 tab PO Q6H PRN #18 tablet PRN Reason: Pain, Moderate (4-6)
[2018-06-13] MEDS ORDERED: DELTASONE PO SCH (14:00)
[2018-06-13] MEDS: LEVAQUIN PO SCH (14:59)
[2018-06-13] MEDS ORDERED: CLEOCIN PO SCH (15:00)
== END 2018-06-13 16:00 | disposition home or self-care (01) | DRG 776 ==
LOC: ED 09:29 → 3A 14:24
PROVIDERS: ADMIT Internal Medicine; ATTEND Family Medicine
DX: O85 Puerperal sepsis (principal); O91.22 Nonpurulent mastitis associated with the puerperium; T36.0X5A Adverse effect of penicillins, initial encounter; Y92.89 Other specified places as the place of occurrence of the external cause; L27.1 Localized skin eruption due to drugs and medicaments taken internally; Y92.239 Unspecified place in hospital as the place of occurrence of the external cause; O86.20 Urinary tract infection following delivery, unspecified
CPT/HCPCS: 36415; 80048; 80053; 81001; 82140; 83036; 85007; 85025; 87040; 96374; 96375; 99291; J0295; J1170; J1200; J2270; J2543; J3370; J7030; J7050; J7512

== ENCOUNTER 2021-04-19 01:08 | Emergency (ER) | payer MEDICAID | END 2021-04-19 01:13 | disposition left against medical advice (07) | LOC: ED 01:08 | DX: O20.8 Other hemorrhage in early pregnancy (principal); Z3A.01 Less than 8 weeks gestation of pregnancy; Z53.21 Procedure and treatment not carried out due to patient leaving prior to being seen by health care provider ==